=== PATIENT | female | born 1940 | race Caucasian/White ===

== ENCOUNTER 2020-04-20 07:58 | Emergency (ER) | payer OTHER ==
--- OUTSIDE RECORDS SUMMARY | 2020-04-20 08:00 | XMS REPORT | Clinical Summary ---
:1940 Author Organization [facility] Address [address] [place] [address] Care Team Providers Name Role Phone Magui Marte MD Primary Care Provider Allergies Active Allergy Reactions Severity Noted Date Comments Hydrocodone 08/27/2017 Medications Medication Sig Dispensed Refills Start Date End Date Status oxyCODone Take 1 tablet by 0 07/27/2017 Ac tive (ROXICODONE) 5 MG mouth every 4 immediate release (four) hours as tablet needed. Can take q 4-6 h prm levothyroxine Take 125 mcg by 0 Active (SYNTHROID, LEVOXYL) mouth daily. 125 mcg tablet benazepril-hydrochlor Take 1 tablet by 0 Active othiazide (LOTENSIN mouth daily. HCT) 20-12.5 mg per tablet naloxegol (MOVANTIK) Take 25 mg by mouth 0 Active 25 mg tablet tablet daily. For constipation Active Problems Problem Noted Date Acute deep vein thrombosis (DVT) of proximal vein of l ower extremity 08/27/2017 Surgical History Surgery Date Site/Laterality Comments JOINT REPLACEMENT bilateral knee s APPENDECTOMY CHOLECYSTECTOMY HYSTERECTOMY BLADDER SUSPENSION EYE SURGERY APPENDECTOMY APPENDECTOMY 06/21/1950 - 06/20/1951 HYSTERECTOMY 06/21/1988 - 06/20/1989 HYSTERECTOMY 06/21/1988 - 06/20/1989 TUBAL LIGATION 06/21/1971 - 06/20/1972 Bilateral Medical History Medical History Date Comments Hypertension Disease of thyroid gland Family History Medical History Relation Name Comments No Known Problems Brother No Known Problems Father No Known Problems Mother Relation Name Status Comments Brother Father Mother Social History Tobacco Use Types Packs/Day Years Used Date Former Smoker Cigarettes 1 20 Quit: 08/28/19 04 Smokeless Tobacco: Never Used Alcohol Use Drinks/Week oz/Week Comments Yes 1 Glasses of wine 2.0 1 Cans of beer Sex Assigned at Date Recorded Not on file Last Filed Vital Signs Not on file Plan of Treatment Health Maintenance Due Date Last Done Comments SHINGLES VACCINES (#1) 01/24/1992 65+ PNEUMOCOCCAL VACCINE (1 of 1 - PPSV23) 2007 INFLUENZA VACCINE 01/20/2020 Implants Implanted Type Area [employer] Device Identifier Shelf Exp iration Model / Date Serial / L ot Knee Replacement Results Not on fileafter 04/20/2019 Advance Directives For more information, please contact: [phone] Type Date Recorded Patient [employer] Explanati on Advance Directives, 07/09/2017 10:22 AM Living Will and Medical Power of Huc Ob Code Status Date Activated Date Inactivated Comments Full Code 08/27/2017 9:11 PM 08/30/2017 6:19 PM Code Status decision reached by: Patient
[2020-04-20 08:48] LABS: Absolute Lymphocytes (CBC) 1.3 K/uL (0.7-4.9); Basophils % 0.6 % (0-1.3); Hematocrit 45.4 % (36.0-45.0); Lymphocytes % 14.5 % (15.3-44.8); MPV 9.1 fL (7.6-11.3); RBC Red Blood Cell Count 4.95 M/uL (3.86-4.86)
[2020-04-20 08:51] LABS: Urine Blood TRACE (NEG); Urine Glucose NEGATIVE (NEG); Urine Protein NEGATIVE (NEG)
[2020-04-20] MEDS ORDERED: dexAMETHasone 4 MG/ML VIAL ONE (08:58)
[2020-04-20] MEDS ORDERED: NA CHLORIDE 0.9% 500 ML ONE (08:58)
[2020-04-20] MEDS ORDERED: KETOROLAC 30 MG/ML INJ ONE (08:58)
[2020-04-20] MEDS ORDERED: COLCHICINE 0.6 MG TAB ONE ×2 (09:02→10:05)
[2020-04-20 09:04] LABS: Albumin 3.9 g/dL (3.4-5.0); Potassium 3.2 mmol/L (3.5-5.1); Protein, Total 8.5 g/dL (6.4-8.2); Uric Acid 6.5 mg/dL (2.6-6.0)
--- NOTE | 2020-04-20 09:32 | ER ---
Nurse's Notes [facility] Name: Domonique Churchill Age: 80 yrs Sex: Female : 1940 Arrival Date: 04/20/2020 Time: 08:01 Bed 16 Private MD: Diagnosis: Effusion, left wrist;Pain in left wrist-arthritis;Hypokalemia Presentation: 04/20 08:13 Chief complaint: Patient states: Pt states about a week prior, she hurt left upper arm ae4 on car door, now left wrist, is painful and swollen. Coronavirus screen: Client denies travel out of the [place] in the last 14 days. At this time, the client does not indicate any symptoms associated with coronavirus-19. Ebola Screen: Patient negative for fever greater than or equal to 101.5 degrees Fahrenheit, and additional compatible Ebola Virus Disease symptoms Patient denies exposure to infectious person. Patient denies travel to an Ebola-affected area in the 21 days before illness onset. Initial Sepsis Screen: Does the patient meet any 2 criteria? No. Patient's initial sepsis screen is negative. Does the patient have a suspected source of infection? No. Patient's initial sepsis screen is negative. Risk Assessment: Do you want to hurt yourself or someone else? Patient reports no desire to harm self or others. Onset of symptoms was April 20, 2020 at 03:30. Care prior to arrival: Medication(s) given: Pt reports she took "two Jose Manuel aspirins" at 0330 this morning. 08:13 Method Of Arrival: Ambulatory ae4 08:13 Acuity: LUTHER 4 ae4 08:33 Acuity: LUTHER 3 iw Triage Assessment: 08:40 General: Appears in no apparent distress. uncomfortable, Behavior is calm, cooperative. ae4 Pain: Complains of pain in left wrist Pain currently is 10 out of 10 on a pain scale. EENT: No signs and/or symptoms were reported regarding the EENT system. Neuro: Level of Consciousness is awake, alert, obeys commands, Oriented to person, place, time, situation, Appropriate for age. Cardiovascular: Patient's skin is warm and dry. Rhythm is regular. Respiratory: Airway is patent Respiratory effort is even, unlabored, Respiratory pattern is regular. GI: No signs and/or symptoms were reported involving the gastrointestinal system. : No signs and/or symptoms were reported regarding the genitourinary system. Derm: No signs and/or symptoms reported regarding the dermatologic system. Skin is dry, Skin temperature is warm Bruising that is dark purple, on left bicep. Musculoskeletal: Swelling present in left wrist. Historical: - Allergies: 08:26 Hydrocodone-Acetaminophen; ae4 - Immunization history:: Adult Immunizations up to date. - Family history:: not pertinent. - Social history:: Smoking status: Patient/guardian denies using tobacco, but has a distant history of tobacco abuse. Screenin:04 Abuse screen: Denies threats or abuse. Denies injuries from another. Nutritional ae4 screening: No deficits noted. Tuberculosis screening: No symptoms or risk factors identified. Fall Risk None identified. Assessment: 09:10 Reassessment: See full triage. Reassessment: Patient appears in no apparent distress at ae4 this time. Patient states symptoms have not improved. Neuro: No deficits noted. Level of Consciousness is Oriented to person, place, time, situation, Appropriate for age. 09:44 Reassessment: Patient appears in no apparent distress at this time. Patient and/or iw family updated on plan of care and expected duration. Pain level reassessed. Patient is alert, oriented x 3, equal unlabored respirations, skin warm/dry/pink. 09:58 Reassessment: Patient appears in no apparent distress at this time. Patient states ae4 feeling better. Patient states symptoms have improved. Pain: Pain currently is 7 out of 10 on a pain scale. Vital Signs: 08:13 BP 187 / 84; Pulse 73; Resp 17; Temp 98; Pulse Ox 99% on R/A; ae4 08:13 Weight 71.67 kg (R); ae4 09:03 BP 161 / 86; Pulse 65; Resp 17; Pulse Ox 98% on R/A; ae4 ED Course: 08:01 Patient arrived in ED. as 08:04 Cade Mora MD is Attending Physician. ric 08:13 Los Garcia, DEANNE is Primary Nurse. ae4 08:17 Triage completed. ae4 08:53 Wrist Left (3 View) XRAY In Process Unspecified. EDMS 09:03 Arm band placed on right wrist. ae4 09:04 Bed in low position. Call light in reach. Side rails up X 1. Pulse ox on. NIBP on. Warm ae4 blanket given. 09:04 Inserted saline lock: 22 gauge in right antecubital area, using aseptic technique. ae4 Blood collected. 09:30 Ian Torrez MD is Referral Physician. ric 09:47 US Extremity Venous Unilateral Ltd In Process Unspecified. EDMS 09:47 Ultrasound completed. Patient tolerated well. Notified ED Physician mel. sg3 09:58 No provider procedures requiring assistance completed. IV discontinued, intact, iw bleeding controlled, No redness/swelling at site. Pressure dressing applied. Administered Medications: 08:52 Drug: NS 0.9% 500 ml Route: IV; Rate: bolus; Site: right antecubital; ae4 08:54 Drug: TORadol 30 mg Route: IVP; Site: right antecubital; ae4 09:47 Follow up: Response: No adverse reaction; RASS: Alert and Calm (0) ae4 08:55 Drug: Colcrys 1.2 mg Route: PO; ae4 09:58 Follow up: Response: No adverse reaction ae4 08:58 Drug: Decadron - Dexamethasone 6 mg Route: IVP; Site: right antecubital; ae4 09:47 Follow up: Response: No adverse reaction ae4 09:43 Drug: Potassium Effervescent Tablet 25 mEq Route: PO; iw 09:56 Follow up: Response: Medication administered at discharge. 09:57 Drug: Colcrys 0.6 mg Route: PO; ae4 09:58 Follow up: Response: No adverse reaction ae4 Outcome: 09:31 Discharge ordered by . ric 09:58 Discharged to home ambulatory. iw 09:58 Condition: good 09:58 Discharge instructions given to patient, Instructed on discharge instructions, follow up and referral plans. medication usage, Demonstrated understanding of instructions, follow-up care, medications, Prescriptions given X 2. 10:01 Patient left the ED. iw Signatures: Dispatcher [employer] EDNY Cade Mora MD MD cha Martinez, Amelia as Williams, Irene, DEANNE ALICEA Katherine Royal RN RN Gemini John sg3 Los Garcia RN RN ae4
--- NOTE | 2020-04-20 09:32 | EDPHYS ---
Physician Documentation [facility] Name: Domonique Churchill Age: 80 yrs Sex: Female : 1940 Arrival Date: 04/20/2020 Time: 08:01 Bed 16 Private MD: ED Physician Cade Mora HPI: 04/20 08:43 This 80 yrs old Female presents to ER via Ambulatory with complaints of Wrist ric Pain. 08:45 The patient or guardian reports decreased range of motion, pain, swelling, tenderness. ric The complaints affect the left wrist diffusely. Context: The problem was sustained at an unknown location. Onset: The symptoms/episode began/occurred 3 day(s) ago. Modifying factors: The symptoms are alleviated by elevation, holding still, the symptoms are aggravated by movement, dependent position. Associated signs and symptoms: The patient has no apparent associated signs or symptoms. Compartment Syndrome negative for numbness, tingling, positive for pain. The patient has not experienced similar symptoms in the past. Historical: - Allergies: 08:26 Hydrocodone-Acetaminophen; ae4 - Immunization history:: Adult Immunizations up to date. - Family history:: not pertinent. - Social history:: Smoking status: Patient/guardian denies using tobacco, but has a distant history of tobacco abuse. ROS: 08:45 Constitutional: Negative for fever, chills, and weight loss, Eyes: Negative for injury, ric pain, redness, and discharge, ENT: Negative for injury, pain, and discharge, Neck: Negative for injury, pain, and swelling, Cardiovascular: Negative for chest pain, palpitations, and edema, Respiratory: Negative for shortness of breath, cough, wheezing, and pleuritic chest pain, Abdomen/GI: Negative for abdominal pain, nausea, vomiting, diarrhea, and constipation, Back: Negative for injury and pain, : Negative for injury, bleeding, discharge, and swelling, Skin: Negative for injury, rash, and discoloration, Neuro: Negative for headache, weakness, numbness, tingling, and seizure, Psych: Negative for depression, anxiety, suicide ideation, homicidal ideation, and hallucinations, Allergy/Immunology: Negative for hives, rash, and allergies, Endocrine: Negative for neck swelling, polydipsia, polyuria, polyphagia, and marked weight changes, Hematologic/Lymphatic: Negative for swollen nodes, abnormal bleeding, and unusual bruising. 08:45 MS/extremity: Positive for decreased range of motion, pain, rash, swelling, tenderness, of the lateral aspect of left wrist, medial aspect of left wrist, dorsal aspect of left wrist and palmar aspect of left wrist. Exam: 08:45 Hand exam: Exam is positive for decreased range of motion, edema, swelling, tenderness. ric 08:45 Constitutional: This is a well developed, well nourished patient who is awake, alert, and in no acute distress. Head/Face: Normocephalic, atraumatic. Eyes: Pupils equal round and reactive to light, extra-ocular motions intact. Lids and lashes normal. Conjunctiva and sclera are non-icteric and not injected. Cornea within normal limits. Periorbital areas with no swelling, redness, or edema. ENT: Nares patent. No nasal discharge, no septal abnormalities noted. Tympanic membranes are normal and external auditory canals are clear. Oropharynx with no redness, swelling, or masses, exudates, or evidence of obstruction, uvula midline. Mucous membranes moist. Neck: Trachea midline, no thyromegaly or masses palpated, and no cervical lymphadenopathy. Supple, full range of motion without nuchal rigidity, or vertebral point tenderness. No Meningismus. Chest/axilla: Normal chest wall appearance and motion. Nontender with no deformity. No lesions are appreciated. Cardiovascular: Regular rate and rhythm with a normal S1 and S2. No gallops, murmurs, or rubs. Normal PMI, no JVD. No pulse deficits. Respiratory: Lungs have equal breath sounds bilaterally, clear to auscultation and percussion. No rales, rhonchi or wheezes noted. No increased work of breathing, no retractions or nasal flaring. Abdomen/GI: Soft, non-tender, with normal bowel sounds. No distension or tympany. No guarding or rebound. No evidence of tenderness throughout. Back: No spinal tenderness. No costovertebral tenderness. Full range of motion. Skin: Warm, dry with normal turgor. Normal color with no rashes, no lesions, and no evidence of cellulitis. Neuro: Awake and alert, GCS 15, oriented to person, place, time, and situation. Cranial nerves II-XII grossly intact. Motor strength 5/5 in all extremities. Sensory grossly intact. Cerebellar exam normal. Normal gait. Psych: Awake, alert, with orientation to person, place and time. Behavior, mood, and affect are within normal limits. 08:45 Musculoskeletal/extremity: ROM: limited active range of motion, limited passive range of motion, Circulation is intact in all extremities. Sensation intact. Compartment Syndrome exam of affected extremity: is normal. Joints: the left wrist displays effusion, limited range of motion, pain at rest, painful range of motion, swelling, tenderness. Vital Signs: 08:13 BP 187 / 84; Pulse 73; Resp 17; Temp 98; Pulse Ox 99% on R/A; ae4 08:13 Weight 71.67 kg (R); ae4 09:03 BP 161 / 86; Pulse 65; Resp 17; Pulse Ox 98% on R/A; ae4 MDM: 08:11 Patient medically screened. ric 08:49 Differential diagnosis: closed fracture, contusion, tendonitis. Data reviewed: vital ric signs, nurses notes, lab test result(s), radiologic studies, doppler, plain films. Data interpreted: Pulse oximetry: on room air is 99 %. Test interpretation: by ED physician or midlevel provider: plain radiologic studies. Counseling: I had a detailed discussion with the patient and/or guardian regarding: the historical points, exam findings, and any diagnostic results supporting the discharge/admit diagnosis, lab results, radiology results, the need for outpatient follow up, for definitive care, a orthopedic surgeon. 04/20 08:29 Order name: CBC with Diff; Complete Time: 09:45 [facility] 04/20 08:29 Order name: Comprehensive Metabolic Panel; Complete Time: 09:30 ric 04/20 08:29 Order name: Uric Acid; Complete Time: 09:30 [facility] 04/20 08:29 Order name: Wrist Left (3 View) XRAY [facility] 04/20 08:29 Order name: Sed Rate; Complete Time: 09:45 [facility] 04/20 08:49 Order name: Urine Dipstick--Ancillary (enter results); Complete Time: 08:53 em1 04/20 08:29 Order name: US Extremity Venous Unilateral Ltd [facility] 04/20 08:30 Order name: Splint: cock up, velcro; Complete Time: 09:08 ric 04/20 09:45 Order name: Ice pack; Complete Time: 09:56 ric Administered Medications: 08:52 Drug: NS 0.9% 500 ml Route: IV; Rate: bolus; Site: right antecubital; ae4 08:54 Drug: TORadol 30 mg Route: IVP; Site: right antecubital; ae4 09:47 Follow up: Response: No adverse reaction; RASS: Alert and Calm (0) ae4 08:55 Drug: Colcrys 1.2 mg Route: PO; ae4 09:58 Follow up: Response: No adverse reaction ae4 08:58 Drug: Decadron - Dexamethasone 6 mg Route: IVP; Site: right antecubital; ae4 09:47 Follow up: Response: No adverse reaction ae4 09:43 Drug: Potassium Effervescent Tablet 25 mEq Route: PO; iw 09:56 Follow up: Response: Medication administered at discharge. ss 09:57 Drug: Colcrys 0.6 mg Route: PO; ae4 09:58 Follow up: Response: No adverse reaction ae4 Disposition: 04/20/20 09:31 Discharged to Home. Impression: Effusion, left wrist, Pain in left wrist - arthritis, Hypokalemia. - Condition is Stable. - Discharge Instructions: Joint Pain, Arthritis, Musculoskeletal Pain, Wrist Pain, Cryotherapy, [id number], Cryotherapy, Joint Pain, [id number]. - Prescriptions for indomethacin 25 mg Oral capsule - take 1 capsule by ORAL route 3 times per day with food; 21 capsule. Medrol (Jed) 4 mg Oral Tablets, Dose Pack - take 1 tablet by ORAL route as directed - follow package instructions; 1 packet. - Medication Reconciliation Form, Thank You Letter, Antibiotic Education, Prescription Opioid Use form. - Follow up: Private Physician; When: 2 - 3 days; Reason: Recheck today's complaints, Continuance of care, Re-evaluation by your physician. Follow up: Ian Torrez; When: 2 - 3 days; Reason: Recheck today's complaints, Re-evaluation by your physician. - Problem is new. - Symptoms have improved. Signatures: Dispatcher [employer] Cade Loyola MD MD cha Williams, Irene, RN RN iw Elliott, Andrea, RN RN Katherine Mario RN ss Corrections: (The following items were deleted from the chart) 10: 09:31 04/20/2020 09:31 Discharged to Home. Impression: Effusion, left wrist; Pain in iw left wrist - arthritis; Hypokalemia. Condition is Stable. Discharge Instructions: Joint Pain, Arthritis, Musculoskeletal Pain, Wrist Pain, Cryotherapy, Qqkz-[id number], Cryotherapy, Joint Pain, [id number]. Prescriptions for indomethacin 25 mg Oral capsule - take 1 capsule by ORAL route 3 times per day with food; 21 capsule, Medrol (Jed) 4 mg Oral Tablets, Dose Pack - take 1 tablet by ORAL route as directed - follow package instructions; 1 packet. and Forms are Medication Reconciliation Form, Thank You Letter, Antibiotic Education, Prescription Opioid Use. Follow up: Private Physician; When: 2 - 3 days; Reason: Recheck today's complaints, Continuance of care, Re-evaluation by your physician. Follow up: Ian Torrez; When: 2 - 3 days; Reason: Recheck today's complaints, Re-evaluation by your physician. Problem is new. Symptoms have improved. ric
[2020-04-20] MEDS ORDERED: POTASSIUM 25 MEQ EFFERV TAB ONE (09:50)
[2020-04-20 10:07] VITALS: TEMP 98
[2020-04-20 10:09] VITALS: BP 161/86; O2SAT 98
--- NOTE | 2020-04-20 10:40 | RAD REPORT ---
EXAM DESCRIPTION: USExtremity Venous Uni Ltd04/20/2020 9:47 am CLINICAL HISTORY: Left arm pain COMPARISON: None FINDINGS: The left internal jugular, left subclavian, left cephalic, left axillary, left brachial, l eft basilic veins are generally compressible and demonstrate augmentation. Doppler demonstrates good flow. IMPRESSION: No evidence of thrombus within the veins of the left upper extremity
--- NOTE | 2020-04-20 11:17 | RAD REPORT ---
EXAM DESCRIPTION: RAD - Wrist Left 3 View - 04/20/2020 8:54 am CLINICAL HISTORY: Left wrist pain status post injury FINDINGS: No fracture or dislocation is seen. 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 If the patient continues to have symptoms to suggest an occult fracture then a followup plain film se reuben in 7 days would be recommended
== END 2020-04-20 10:01 | disposition home or self-care (01) ==
LOC: ER 07:58
DX: M25.432 Effusion, left wrist (principal); M19.032 Primary osteoarthritis, left wrist; E87.6 Hypokalemia; Z88.5 Allergy status to narcotic agent
CPT/HCPCS: 85025; 36415; 84550; 85652; 81003; 80053; 73110; 93971; 96375; 96374; 99284; J1100; J7040